=== PATIENT | male | born 1940 | race Caucasian/White ===

== ENCOUNTER 2018-03-20 12:12 | Emergency (ER) | payer MEDICARE ==
[~2018-03-20] VITALS: Ht 177.8 cm; Wt 78.0 kg
--- NOTE | 2018-03-20 12:51 | NUR ---
PT IN BR ATTEMPTING TO PROVIDE UA, ROOM SET UP FOR PT.
--- NOTE | 2018-03-20 13:07 | NUR ---
URINE COLLECTED/SENT TO LAB. VS RECHECKED/UPDATED IN COMPUTER. PT IN NAD AT THIS TIME. PT STATES URINARY PROBLEMS ONGOING FOR FOUR YEARS. STATES HE DOESN'T LIKE TAKING "PROSTATE MEDS" B/C IT MAKES HIM "PEE ALL THE TIME". PT STATES INCREASED THIRST/WATER INTAKE, STOPPED TAKING DM AND BP MEDS WELL B/C HE THOUGHT IT WAS MAKING HIS DIABETES WORSE. PT EDUCATED ON SX R/T STOPPING MEDS, POTENTIAL PROBLEMS. PT APPEARS RECEPTIVE TO TEACHING. CALL LIGHT WITHIN REACH, WARM BLANKET OFFERED.
[2018-03-20 13:21] LABS: BASOPHILS # (AUTO) 0.01 x10^3/uL (0-0.1); BASOPHILS % (AUTO) 0 % (0-1); EOSINOPHILS # (AUTO) 0.09 x10^3/uL (0-0.4); EOSINOPHILS % (AUTO) 1 % (1-7); LYMPHOCYTES # (AUTO) 0.79 x10^3/uL (1-3.4); LYMPHOCYTES % (AUTO) 8 % (22-44); MD NO; MEAN CORPUSCULAR HEMOGLOBIN 32.6 pg (27.5-34.5); MEAN CORPUSCULAR HGB CONC 33.6 g/dL (33.2-36.2); MEAN PLATELET VOLUME 9.4 fL (7.4-10.4); MONOCYTES # (AUTO) 1.17 x10^3/uL (0.2-0.8); MONOCYTES % (AUTO) 12 % (2-9); NEUTROPHILS # (AUTO) 7.43 x10^3/uL (1.8-6.8); NEUTROPHILS % (AUTO) 78 % (42-75); PLATELET COUNT 250 x10^3/uL (130-400); RED BLOOD COUNT 4.43 x10^6/uL (4.38-5.82); RED CELL DISTRIBUTION WIDTH 13.8 % (9.4-14.8)
[2018-03-20 13:27] LABS: MICROSCOPIC INDICATED
[2018-03-20 13:34] LABS: ALANINE AMINOTRANSFERASE 17 U/L (12-78); ALBUMIN 3.3 g/dL (3.4-5.0); ANION GAP 18 mmol/L (5-15); CALCIUM 9.3 mg/dL (8.5-10.1); CHLORIDE 102 mmol/L (98-107); CREATININE 1.37 mg/dL (0.7-1.3)
[2018-03-20 13:36] LABS: ALKALINE PHOSPHATASE 119 U/L (45-117); BILIRUBIN,TOTAL 0.9 mg/dL (0.2-1.0)
[2018-03-20] MEDS ORDERED: ENALAPRILAT 1.25 MG/ML, 2ML IV ONE (14:00)
--- NOTE | 2018-03-20 14:12 | NUR ---
VS RECHECKED/UPDATED IN COMPUTER-ERP AWARE. PT UPDATED ON POC. PT REQUESTING WATER, AWARE OF NEED TO WAIT UNTIL CT HEAD READ BACK. PCXR COMPLETED.
[2018-03-20 14:16] LABS: CULTURE INDICATED? YES
--- NOTE | 2018-03-20 14:28 | NUR ---
WATER PROVIDED PER ERP. AWAITING CXR READ.
--- NOTE | 2018-03-20 15:04 | NUR ---
ALL RESULTS BACK, PT FOR RECHECK.
[2018-03-20 15:33] VITALS: BP 144/89
== END 2018-03-20 15:38 | disposition home or self-care (01) ==
LOC: ED 15:30
DX: R42 Dizziness and giddiness (principal); N39.45 Continuous leakage; E11.9 Type 2 diabetes mellitus without complications; I10 Essential (primary) hypertension; Z72.9 Problem related to lifestyle, unspecified; Z87.891 Personal history of nicotine dependence
CPT/HCPCS: 36415; 70450; 71045; 80053; 81001; 82962; 85025; 87077; 87086; 87186; 93005; 99284

== ENCOUNTER 2018-03-23 07:15 | Inpatient (IN) | payer MEDICARE ==
[~2018-03-23] VITALS: Ht 180.3 cm; Wt 84.5 kg
[2018-03-23] MEDS ORDERED: PANTOPRAZOLE 40 MG IV ONE (08:27)
[2018-03-23] MEDS ORDERED: PANTOPRAZOLE 40 MG IV IVPush ONE (08:30)
[2018-03-23] MEDS ORDERED: PLEASE ENTER HEIGHT AND WEIGHT MC SCH (08:30)
[2018-03-23] MEDS ORDERED: SODIUM CHLORIDE 0.9% 1,000ML IVBOLUS ONE ×3 (08:30→16:00)
[2018-03-23 08:53] LABS: MEAN CORPUSCULAR HEMOGLOBIN 32.5 pg (27.5-34.5); MEAN CORPUSCULAR HGB CONC 33.6 g/dL (33.2-36.2); MEAN CORPUSCULAR VOLUME 96.8 fL (81-97); MEAN PLATELET VOLUME 9.6 fL (7.4-10.4); PLATELET COUNT 302 x10^3/uL (130-400); RED BLOOD COUNT 4.09 x10^6/uL (4.38-5.82); RED CELL DISTRIBUTION WIDTH 13.8 % (9.4-14.8)
[2018-03-23 08:55] LABS: ALANINE AMINOTRANSFERASE 18 U/L (12-78); ALBUMIN 2.4 g/dL (3.4-5.0); ANION GAP 19 mmol/L (5-15); CALCIUM 9.6 mg/dL (8.5-10.1); CHLORIDE 99 mmol/L (98-107); CREATININE 3.97 mg/dL (0.7-1.3)
[2018-03-23 09:05] LABS: ALKALINE PHOSPHATASE 146 U/L (45-117); TOTAL PROTEIN 6.4 g/dL (6.4-8.2)
[2018-03-23 09:07] LABS: MD YES
[2018-03-23 09:09] LABS: METAMYELOCYTES# (MANUAL) 0.15 x10^3/uL (0-0); METAMYELOCYTES% (MANUAL) 1 % (0-1); NRBC % (MANUAL) 1 % (0-1)
[2018-03-23 09:11] LABS: BAND#(MANUAL) 1.66 x10^3/uL; BANDS%(MANUAL) 11 % (0-7); LYMPH#(MANUAL) 1.06 x10^3/uL (1-3.4); LYMPHS% (MANUAL) 7 % (22-44); MONOS#(MANUAL) 0.91 x10^3/uL (0.3-2.7); MONOS% (MANUAL) 6 % (2-9); SEG#(MANUAL) 11.33 x10^3/uL (1.8-6.8); SEGS% (MANUAL) 75 % (42-75)
[2018-03-23 09:13] LABS: <PLATELET ESTIMATE> ADEQUATE; <PLT MORPHOLOGY> NORMAL PLT MORPH; <RBC MORPHOLOGY> NORMAL; PMNS WITH VACUOLES 1+; TOXIC GRAN 1+
[2018-03-23] MEDS ORDERED: REGULAR INSULIN 62.5 UNITS in SODIUM CHLORIDE 0.9% 249.375 ML IV PRN (09:16)
[2018-03-23 09:24] LABS: ACETONE, SERUM Large (80mg/dL) mg/dL (Negative)
[2018-03-23] MEDS ORDERED: D5%-0.45NACL+KCL 20MEQ 1,000 ML IV SCH (09:46)
[2018-03-23] MEDS: SODIUM CHLORIDE 0.9% 1,000 ML IV SCH ×3 (09:46→21:27)
[2018-03-23] MEDS ORDERED: ONDANSETRON ODT 4 MG PO PRN (10:00)
[2018-03-23] MEDS ORDERED: POLYETHYLENE GLYCOL 17 GM PACKET PO PRN (10:00)
[2018-03-23] MEDS ORDERED: ONDANSETRON 2MG/ML, 2ML IVPush PRN (10:00)
[2018-03-23] MEDS ORDERED: CEFTRIAXONE PMX 1GM/50ML 50 ML IV SCH (10:00)
[2018-03-23] MEDS ORDERED: BISACODYL 10 MG SUPP PR PRN ×2 (10:00→21:00)
[2018-03-23] MEDS ORDERED: OXYcodone IR 5MG TABLET PO PRN (10:00)
[2018-03-23] MEDS ORDERED: REGULAR INSULIN 62.5 UNITS in SODIUM CHLORIDE 0.9% 249.375 ML IV SCH (10:00)
[2018-03-23] MEDS ORDERED: morphine SULFATE 10 MG/ML, 1ML IVPush PRN (10:00)
[2018-03-23] MEDS ORDERED: CEFTRIAXONE PMX 1GM/50ML 50 ML ONE (10:28)
[2018-03-23 10:32] LABS: HEMOGLOBIN A1C 11.1 % (4.2-6.3)
[2018-03-23] MEDS ORDERED: ROCURONIUM 10MG/ML,5ML ONE (11:00)
[2018-03-23] MEDS ORDERED: MIDAZOLAM 1 MG/ML, 5ML ONE (11:00)
[2018-03-23 11:07] LABS: CULTURE INDICATED? YES; MICROSCOPIC INDICATED
[2018-03-23] MEDS ORDERED: LISI-167 PO (11:13)
[2018-03-23] MEDS ORDERED: AMLO-150 PO (11:13)
[2018-03-23] MEDS ORDERED: FINA5TAB4 PO (11:13)
[2018-03-23] MEDS ORDERED: DOXA4TAB3 PO (11:13)
[2018-03-23 12:00] LABS: ANION GAP 20 mmol/L (5-15); CALCIUM 8.8 mg/dL (8.5-10.1); CHLORIDE 105 mmol/L (98-107); CREATININE 3.74 mg/dL (0.7-1.3)
[2018-03-23] MEDS ORDERED: LISI-424 PO (13:03)
[2018-03-23 17:31] LABS: TROPONIN I 0.586 ng/mL (0.000-0.045)
[2018-03-23 17:35] LABS: ANION GAP 17 mmol/L (5-15); CALCIUM 8.4 mg/dL (8.5-10.1); CHLORIDE 108 mmol/L (98-107); CREATININE 4.11 mg/dL (0.7-1.3)
[2018-03-23] MEDS ORDERED: PROPOFOL 100 ML IV ONE (19:22)
[2018-03-23] MEDS ORDERED: NOREPINEPHRINE 1 MG/ML, 4ML ONE (19:46)
[2018-03-23] MEDS ORDERED: SODIUM BICARBONATE 1 MEQ/ML, 50ML VIAL ONE (19:50)
[2018-03-23] MEDS ORDERED: MIDAZOLAM HCL 25 MG in SODIUM CHLORIDE 0.9% 245 ML IV PRN (20:00)
[2018-03-23] MEDS ORDERED: VASOPRESSIN 100 UNIT in SODIUM CHLORIDE 0.9% 495 ML IV PRN (20:31)
[2018-03-23 20:42] LABS: ANION GAP 14 mmol/L (5-15); CALCIUM 8.3 mg/dL (8.5-10.1); CHLORIDE 112 mmol/L (98-107); CREATININE 4.12 mg/dL (0.7-1.3)
[2018-03-23] MEDS ORDERED: SENNOSIDES 8.8 MG/5 ML ORAL SOL NG PRN (21:00)
[2018-03-23] MEDS ORDERED: LIDOCAINE-MPF 1%, 2ML ENDO PRN (21:00)
[2018-03-23] MEDS ORDERED: PHARMACY MAY ADJ FOR RENAL FX MC SCH (21:00)
[2018-03-23] MEDS ORDERED: SENNA/DOCUSATE TABLET NG PRN (21:00)
[2018-03-23] MEDS ORDERED: FENTANYL PF 100 MCG/2ML IVPush PRN (21:00)
[2018-03-23] MEDS ORDERED: LACTULOSE 20 GM/30 ML UDC NG PRN (21:00)
[2018-03-23] MEDS ORDERED: SODIUM BICARBONATE 8.4% 100 MEQ in SODIUM CHLORIDE 0.45% 1,000 ML IV SCH (21:00)
[2018-03-23] MEDS ORDERED: SODIUM BICARBONATE 8.4% 150 MEQ in DEXTROSE 5% 1,000 ML IV SCH (21:00)
[2018-03-23] MEDS: LINEZOLID PMX 600MG/300ML 300 ML IV SCH (21:08)
[2018-03-23] MEDS: MEROPENEM 500 MG in SODIUM CHLORIDE 0.9% 100 ML IV SCH (21:08)
[2018-03-23] MEDS: PANTOPRAZOLE 40 MG IV IVPush SCH (21:21)
[2018-03-23 21:32] LABS: MEAN CORPUSCULAR HEMOGLOBIN 32.8 pg (27.5-34.5); MEAN CORPUSCULAR VOLUME 96.5 fL (81-97); MEAN PLATELET VOLUME 9.5 fL (7.4-10.4); PLATELET COUNT 342 x10^3/uL (130-400); RED CELL DISTRIBUTION WIDTH 13.6 % (9.4-14.8)
[2018-03-23] MEDS: ALBUTEROL/IPRATROPIUM 2.5MG/0.5MG, 3 ML INLINE SCH (22:26)
[2018-03-24] MEDS: REGULAR INSULIN 125 UNITS in SODIUM CHLORIDE 0.9% 248.75 ML IV SCH ×2 (00:28→17:36)
[2018-03-24] MEDS: NOREPINEPHRINE 4 MG in SODIUM CHLORIDE 0.9% 246 ML IV PRN ×2 (00:28→04:12)
[2018-03-24 00:42] LABS: ANION GAP 14 mmol/L (5-15); CALCIUM 7.9 mg/dL (8.5-10.1); CHLORIDE 113 mmol/L (98-107)
[2018-03-24 00:43] LABS: CREATININE 4.15 mg/dL (0.7-1.3)
[2018-03-24] MEDS: ALBUTEROL/IPRATROPIUM 2.5MG/0.5MG, 3 ML INLINE SCH ×6 (02:23→22:15)
[2018-03-24 02:31] LABS: MEAN CORPUSCULAR HEMOGLOBIN 32.9 pg (27.5-34.5); MEAN CORPUSCULAR HGB CONC 34.4 g/dL (33.2-36.2); MEAN CORPUSCULAR VOLUME 95.6 fL (81-97); MEAN PLATELET VOLUME 9.1 fL (7.4-10.4); PLATELET COUNT 318 x10^3/uL (130-400); RED BLOOD COUNT 3.38 x10^6/uL (4.38-5.82); RED CELL DISTRIBUTION WIDTH 13.8 % (9.4-14.8)
[2018-03-24] MEDS: MIDAZOLAM HCL 25 MG in SODIUM CHLORIDE 0.9% 245 ML IV PRN ×2 (04:12→14:22)
[2018-03-24 04:14] VITALS: BP 103/58
[2018-03-24 04:55] LABS: MEAN CORPUSCULAR HEMOGLOBIN 32.8 pg (27.5-34.5); MEAN CORPUSCULAR HGB CONC 34.3 g/dL (33.2-36.2); MEAN CORPUSCULAR VOLUME 95.6 fL (81-97); MEAN PLATELET VOLUME 9.4 fL (7.4-10.4); PLATELET COUNT 335 x10^3/uL (130-400); RED CELL DISTRIBUTION WIDTH 13.8 % (9.4-14.8)
[2018-03-24 05:05] LABS: ALBUMIN 1.9 g/dL (3.4-5.0); CHLORIDE 116 mmol/L (98-107)
[2018-03-24 05:15] LABS: ALANINE AMINOTRANSFERASE 14 U/L (12-78); ALKALINE PHOSPHATASE 127 U/L (45-117); ANION GAP 16 mmol/L (5-15); BILIRUBIN,TOTAL 0.7 mg/dL (0.2-1.0); CREATININE 4.32 mg/dL (0.7-1.3); TOTAL PROTEIN 5.2 g/dL (6.4-8.2)
[2018-03-24 05:36] LABS: MD YES
[2018-03-24 05:38] LABS: BAND#(MANUAL) 3.86 x10^3/uL; BANDS%(MANUAL) 29 % (0-7); NRBC % (MANUAL) 2 % (0-1)
[2018-03-24 05:39] LABS: LYMPH#(MANUAL) 0.67 x10^3/uL (1-3.4); LYMPHS% (MANUAL) 5 % (22-44); MONOS#(MANUAL) 0.67 x10^3/uL (0.3-2.7); MONOS% (MANUAL) 5 % (2-9); SEG#(MANUAL) 8.11 x10^3/uL (1.8-6.8); SEGS% (MANUAL) 61 % (42-75)
[2018-03-24 05:40] LABS: <RBC MORPHOLOGY> NORMAL; TOXIC GRAN 1+
[2018-03-24 05:41] LABS: <PLATELET ESTIMATE> ADEQUATE; <PLT MORPHOLOGY> NORMAL PLT MORPH
[2018-03-24 05:42] LABS: PMNS WITH VACUOLES 2+
[2018-03-24] MEDS ORDERED: [UNRECOGNIZED DRUG - OTHER] IV SCH (06:30)
[2018-03-24] MEDS ORDERED: SODIUM BICARB IV SCH (06:30)
[2018-03-24] MEDS ORDERED: POTASSIUM CHLORIDE IV SCH (06:30)
[2018-03-24] MEDS ORDERED: POTASSIUM PHOSPHATE 44 MEQ in SODIUM CHLORIDE 0.9% 500 ML IV ONE (06:30)
[2018-03-24] MEDS: NOREPINEPHRINE 8 MG in SODIUM CHLORIDE 0.9% 242 ML IV PRN ×2 (07:06→19:42)
[2018-03-24] MEDS: SENNA/DOCUSATE TABLET PO SCH (09:00)
[2018-03-24 09:31] LABS: HEMOGRAM NOTE RECHECKED; MEAN CORPUSCULAR HEMOGLOBIN 32.4 pg (27.5-34.5); MEAN CORPUSCULAR HGB CONC 33.6 g/dL (33.2-36.2); MEAN CORPUSCULAR VOLUME 96.5 fL (81-97); MEAN PLATELET VOLUME 9.1 fL (7.4-10.4); PLATELET COUNT 253 x10^3/uL (130-400); RED BLOOD COUNT 3.18 x10^6/uL (4.38-5.82); RED CELL DISTRIBUTION WIDTH 13.9 % (9.4-14.8)
[2018-03-24] MEDS: MEROPENEM 500 MG in SODIUM CHLORIDE 0.9% 100 ML IV SCH ×2 (09:34→21:33)
[2018-03-24] MEDS: LINEZOLID PMX 600MG/300ML 300 ML IV SCH ×2 (09:34→19:41)
[2018-03-24] MEDS: PANTOPRAZOLE 40 MG IV IVPush SCH ×2 (09:34→19:41)
[2018-03-24] MEDS ORDERED: D5%-0.45NACL+KCL 20MEQ 1,000 ML IV SCH (09:46)
[2018-03-24 10:33] LABS: GASTRIC OCCULT BLD POSITIVE (NEGATIVE)
[2018-03-24 10:50] LABS: ANION GAP 15 mmol/L (5-15); CALCIUM 7.8 mg/dL (8.5-10.1); CHLORIDE 115 mmol/L (98-107); CREATININE 4.23 mg/dL (0.7-1.3)
[2018-03-24] MEDS: SODIUM BICARB IV SCH ×2 (12:00→17:39)
[2018-03-24] MEDS: POTASSIUM CHLORIDE IV SCH ×2 (12:00→17:39)
[2018-03-24] MEDS: [UNRECOGNIZED DRUG - OTHER] IV SCH ×2 (12:00→17:39)
[2018-03-24 14:46] LABS: ANION GAP 14 mmol/L (5-15); CALCIUM 7.5 mg/dL (8.5-10.1); CHLORIDE 114 mmol/L (98-107); CREATININE 4.51 mg/dL (0.7-1.3)
[2018-03-24 19:28] LABS: ANION GAP 11 mmol/L (5-15); CALCIUM 7.4 mg/dL (8.5-10.1); CHLORIDE 114 mmol/L (98-107); CREATININE 4.55 mg/dL (0.7-1.3)
[2018-03-24 23:46] LABS: ANION GAP 14 mmol/L (5-15); CALCIUM 7.6 mg/dL (8.5-10.1); CHLORIDE 114 mmol/L (98-107); CREATININE 4.57 mg/dL (0.7-1.3)
[2018-03-25] MEDS: SODIUM BICARB IV SCH ×2 (01:26→11:47)
[2018-03-25] MEDS: POTASSIUM CHLORIDE IV SCH ×2 (01:26→11:47)
[2018-03-25] MEDS: [UNRECOGNIZED DRUG - OTHER] IV SCH ×2 (01:26→11:47)
[2018-03-25] MEDS: ALBUTEROL/IPRATROPIUM 2.5MG/0.5MG, 3 ML INLINE SCH ×6 (02:53→22:59)
[2018-03-25 04:47] VITALS: BP 119/48
[2018-03-25 04:50] LABS: MEAN CORPUSCULAR HEMOGLOBIN 32.8 pg (27.5-34.5); MEAN CORPUSCULAR HGB CONC 34.4 g/dL (33.2-36.2); MEAN CORPUSCULAR VOLUME 95.4 fL (81-97); MEAN PLATELET VOLUME 9.3 fL (7.4-10.4); PLATELET COUNT 203 x10^3/uL (130-400); RED CELL DISTRIBUTION WIDTH 14.3 % (9.4-14.8)
[2018-03-25 04:57] LABS: ANION GAP 15 mmol/L (5-15); CALCIUM 7.7 mg/dL (8.5-10.1); CHLORIDE 112 mmol/L (98-107)
[2018-03-25 04:58] LABS: CREATININE 4.81 mg/dL (0.7-1.3)
[2018-03-25 05:37] LABS: MD YES
[2018-03-25 05:39] LABS: <RBC MORPHOLOGY> NORMAL; BAND#(MANUAL) 4.16 x10^3/uL; BANDS%(MANUAL) 26 % (0-7); LYMPH#(MANUAL) 0.48 x10^3/uL (1-3.4); LYMPHS% (MANUAL) 3 % (22-44); METAMYELOCYTES# (MANUAL) 0.16 x10^3/uL (0-0); METAMYELOCYTES% (MANUAL) 1 % (0-1); MONOS#(MANUAL) 0.16 x10^3/uL (0.3-2.7); MONOS% (MANUAL) 1 % (2-9); SEG#(MANUAL) 11.04 x10^3/uL (1.8-6.8); SEGS% (MANUAL) 69 % (42-75); TOXIC GRAN 1+
[2018-03-25 05:40] LABS: <PLATELET ESTIMATE> ADEQUATE; <PLT MORPHOLOGY> NORMAL PLT MORPH; PMNS WITH VACUOLES 1+
[2018-03-25] MEDS: SENNA/DOCUSATE TABLET PO SCH (09:00)
[2018-03-25] MEDS: LINEZOLID PMX 600MG/300ML 300 ML IV SCH ×2 (09:04→19:45)
[2018-03-25] MEDS: MIDAZOLAM HCL 25 MG in SODIUM CHLORIDE 0.9% 245 ML IV PRN ×2 (09:06→19:44)
[2018-03-25] MEDS: PANTOPRAZOLE 40 MG IV IVPush SCH ×2 (09:06→21:11)
[2018-03-25 09:33] LABS: ANION GAP 12 mmol/L (5-15); CALCIUM 7.7 mg/dL (8.5-10.1); CHLORIDE 111 mmol/L (98-107)
[2018-03-25 09:34] LABS: CREATININE 5.12 mg/dL (0.7-1.3)
[2018-03-25] MEDS: MEROPENEM 500 MG in SODIUM CHLORIDE 0.9% 100 ML IV SCH ×2 (11:46→21:11)
[2018-03-25] MEDS: D5%-0.45% NACL 1,000 ML IV SCH (15:00)
[2018-03-25] MEDS: REGULAR INSULIN 125 UNITS in SODIUM CHLORIDE 0.9% 248.75 ML IV SCH (15:52)
[2018-03-25] MEDS: NOREPINEPHRINE 8 MG in SODIUM CHLORIDE 0.9% 242 ML IV PRN (19:43)
[2018-03-26] MEDS: ALBUTEROL/IPRATROPIUM 2.5MG/0.5MG, 3 ML INLINE SCH ×6 (03:13→23:00)
[2018-03-26] MEDS: D5%-0.45% NACL 1,000 ML IV SCH (03:45)
[2018-03-26 04:33] VITALS: BP 100/56
[2018-03-26 04:34] LABS: MEAN CORPUSCULAR HEMOGLOBIN 33.1 pg (27.5-34.5); MEAN CORPUSCULAR HGB CONC 34.4 g/dL (33.2-36.2); MEAN CORPUSCULAR VOLUME 96.1 fL (81-97); MEAN PLATELET VOLUME 8.8 fL (7.4-10.4); PLATELET COUNT 190 x10^3/uL (130-400); RED BLOOD COUNT 2.86 x10^6/uL (4.38-5.82); RED CELL DISTRIBUTION WIDTH 14.3 % (9.4-14.8)
[2018-03-26 04:46] LABS: CHLORIDE 106 mmol/L (98-107)
[2018-03-26 04:52] LABS: ALANINE AMINOTRANSFERASE 15 U/L (12-78); ALBUMIN 1.2 g/dL (3.4-5.0); ALKALINE PHOSPHATASE 108 U/L (45-117); ANION GAP 13 mmol/L (5-15); BILIRUBIN,TOTAL 0.6 mg/dL (0.2-1.0); CALCIUM 7.1 mg/dL (8.5-10.1); CREATININE 4.17 mg/dL (0.7-1.3); TOTAL PROTEIN 4.4 g/dL (6.4-8.2); TRIGLYCERIDES 103 mg/dL (50-200)
[2018-03-26 04:53] LABS: MD YES
[2018-03-26 04:55] LABS: BAND#(MANUAL) 0.76 x10^3/uL; BANDS%(MANUAL) 5 % (0-7); LYMPH#(MANUAL) 1.51 x10^3/uL (1-3.4); LYMPHS% (MANUAL) 10 % (22-44); METAMYELOCYTES# (MANUAL) 0.15 x10^3/uL (0-0); METAMYELOCYTES% (MANUAL) 1 % (0-1); MONOS#(MANUAL) 1.06 x10^3/uL (0.3-2.7); MONOS% (MANUAL) 7 % (2-9); SEG#(MANUAL) 11.63 x10^3/uL (1.8-6.8); SEGS% (MANUAL) 77 % (42-75)
[2018-03-26 04:56] LABS: <RBC MORPHOLOGY> NORMAL
[2018-03-26 04:57] LABS: <PLATELET ESTIMATE> ADEQUATE; PMNS WITH VACUOLES 1+
[2018-03-26 04:58] LABS: <PLT MORPHOLOGY> NORMAL PLT MORPH
[2018-03-26] MEDS: MIDAZOLAM HCL 25 MG in SODIUM CHLORIDE 0.9% 245 ML IV PRN (05:37)
[2018-03-26] MEDS ORDERED: MAGNESIUM SULFATE PMX 2GM/50ML 50 ML IV ONE (07:00)
[2018-03-26] MEDS: PANTOPRAZOLE 40 MG IV IVPush SCH ×2 (08:32→20:47)
[2018-03-26] MEDS: SENNA/DOCUSATE TABLET PO SCH (08:32)
[2018-03-26] MEDS: MEROPENEM 500 MG in SODIUM CHLORIDE 0.9% 100 ML IV SCH ×2 (08:39→23:05)
[2018-03-26] MEDS ORDERED: VASOPRESSIN 100 UNIT in SODIUM CHLORIDE 0.9% 495 ML IV PRN (09:30)
[2018-03-26] MEDS: LINEZOLID PMX 600MG/300ML 300 ML IV SCH ×2 (09:38→20:46)
[2018-03-26 10:56] LABS: INTERNATIONAL NORMALIZED RATIO 1.12 (0.93-1.1); PROTHROMBIN TIME 11.8 Seconds (9.6-11.5)
[2018-03-26] MEDS: FENTANYL PF 2,500 MCG in SODIUM CHLORIDE 0.9% 200 ML IV PRN (10:58)
[2018-03-26] MEDS: INSULIN LISPRO 100 UNITS/ML, PEN SQ-INSULIN SCH ×3 (12:20→20:46)
[2018-03-26] MEDS: INSULIN GLARGINE 100 UNITS/ML, PEN SQ-INSULIN SCH (12:21)
[2018-03-26] MEDS: D5%-0.9% NACL 1,000 ML IV SCH (12:22)
[2018-03-26] MEDS: NOREPINEPHRINE 4 MG in SODIUM CHLORIDE 0.9% 246 ML IV PRN (23:36)
[2018-03-27] MEDS: INSULIN GLARGINE 100 UNITS/ML, PEN SQ-INSULIN SCH ×2 (00:19→12:29)
[2018-03-27] MEDS: INSULIN LISPRO 100 UNITS/ML, PEN SQ-INSULIN SCH ×6 (00:19→20:47)
[2018-03-27] MEDS: ALBUTEROL/IPRATROPIUM 2.5MG/0.5MG, 3 ML INLINE SCH ×6 (02:32→22:55)
[2018-03-27 06:06] LABS: MEAN CORPUSCULAR HEMOGLOBIN 32.7 pg (27.5-34.5); MEAN CORPUSCULAR HGB CONC 34.1 g/dL (33.2-36.2); MEAN CORPUSCULAR VOLUME 95.7 fL (81-97); MEAN PLATELET VOLUME 9.3 fL (7.4-10.4); PLATELET COUNT 126 x10^3/uL (130-400); RED BLOOD COUNT 2.54 x10^6/uL (4.38-5.82); RED CELL DISTRIBUTION WIDTH 14.4 % (9.4-14.8)
[2018-03-27 06:14] LABS: ANION GAP 12 mmol/L (5-15); CALCIUM 7.2 mg/dL (8.5-10.1); CHLORIDE 100 mmol/L (98-107); CREATININE 3.74 mg/dL (0.7-1.3)
[2018-03-27 06:20] LABS: MD YES
[2018-03-27 06:22] LABS: BAND#(MANUAL) 0.22 x10^3/uL; BANDS%(MANUAL) 2 % (0-7); LYMPH#(MANUAL) 1.21 x10^3/uL (1-3.4); LYMPHS% (MANUAL) 11 % (22-44); METAMYELOCYTES# (MANUAL) 0.11 x10^3/uL (0-0); METAMYELOCYTES% (MANUAL) 1 % (0-1); MONOS% (MANUAL) 10 % (2-9); SEG#(MANUAL) 8.36 x10^3/uL (1.8-6.8); SEGS% (MANUAL) 76 % (42-75)
[2018-03-27 06:23] LABS: <PLATELET ESTIMATE> ADEQUATE; <PLT MORPHOLOGY> NORMAL PLT MORPH; <RBC MORPHOLOGY> NORMAL
[2018-03-27] MEDS: LINEZOLID PMX 600MG/300ML 300 ML IV SCH (08:31)
[2018-03-27] MEDS: SENNA/DOCUSATE TABLET PO SCH (09:00)
[2018-03-27] MEDS: PANTOPRAZOLE 40 MG IV IVPush SCH ×2 (09:22→20:47)
[2018-03-27] MEDS ORDERED: THIAMINE 200 MG in SODIUM CHLORIDE 0.9% 50 ML IV SCH (09:30)
[2018-03-27] MEDS: D5%-0.9% NACL 1,000 ML IV SCH (09:34)
[2018-03-27] MEDS: MEROPENEM 500 MG in SODIUM CHLORIDE 0.9% 100 ML IV SCH (10:26)
[2018-03-28] MEDS: INSULIN LISPRO 100 UNITS/ML, PEN SQ-INSULIN SCH ×6 (00:29→20:48)
[2018-03-28] MEDS: MEROPENEM 500 MG in SODIUM CHLORIDE 0.9% 100 ML IV SCH (00:33)
[2018-03-28] MEDS: INSULIN GLARGINE 100 UNITS/ML, PEN SQ-INSULIN SCH ×2 (00:34→12:54)
[2018-03-28] MEDS: ALBUTEROL/IPRATROPIUM 2.5MG/0.5MG, 3 ML INLINE SCH ×6 (03:00→23:00)
[2018-03-28 04:32] LABS: MEAN CORPUSCULAR HEMOGLOBIN 31.6 pg (27.5-34.5); MEAN CORPUSCULAR HGB CONC 33.3 g/dL (33.2-36.2); MEAN CORPUSCULAR VOLUME 94.9 fL (81-97); MEAN PLATELET VOLUME 9.1 fL (7.4-10.4); PLATELET COUNT 122 x10^3/uL (130-400); RED BLOOD COUNT 2.59 x10^6/uL (4.38-5.82)
[2018-03-28] MEDS: D5%-0.9% NACL 1,000 ML IV SCH (04:38)
[2018-03-28 04:43] LABS: ANION GAP 8 mmol/L (5-15); CALCIUM 7.4 mg/dL (8.5-10.1); CHLORIDE 103 mmol/L (98-107)
[2018-03-28 04:51] LABS: MD YES
[2018-03-28 04:53] LABS: ANISOCYTOSIS 1+; BAND#(MANUAL) 0.22 x10^3/uL; BANDS%(MANUAL) 2 % (0-7); EOS#(MANUAL) 0.11 x10^3/uL (0.0-0.4); EOS% (MANUAL) 1 % (1-7); LYMPH#(MANUAL) 0.56 x10^3/uL (1-3.4); LYMPHS% (MANUAL) 5 % (22-44); METAMYELOCYTES# (MANUAL) 0.11 x10^3/uL (0-0); METAMYELOCYTES% (MANUAL) 1 % (0-1); MONOS#(MANUAL) 0.78 x10^3/uL (0.3-2.7); MONOS% (MANUAL) 7 % (2-9); MYELOCYTES# (MANUAL) 0.22 x10^3/uL (0-0); MYELOCYTES% (MANUAL) 2 % (0-0); SEGS% (MANUAL) 82 % (42-75)
[2018-03-28 04:54] LABS: <PLATELET ESTIMATE> ADEQUATE; <PLT MORPHOLOGY> NORMAL PLT MORPH
[2018-03-28] MEDS: PANTOPRAZOLE 40 MG IV IVPush SCH ×2 (09:00→23:08)
[2018-03-28] MEDS: SENNA/DOCUSATE TABLET PO SCH (09:00)
[2018-03-28] MEDS: ERGOCALCIFEROL 8,000UNIT/ML PO SCH (09:53)
[2018-03-28] MEDS: THIAMINE 200 MG in SODIUM CHLORIDE 0.9% 50 ML IV SCH (09:54)
[2018-03-28] MEDS: FENTANYL PF 2,500 MCG in SODIUM CHLORIDE 0.9% 200 ML IV PRN (10:04)
[2018-03-28] MEDS: CEFTRIAXONE PMX 2GM/50ML 50 ML IVPB SCH (12:42)
[2018-03-29] MEDS ORDERED: PROPOFOL 100 ML IV ONE (00:12)
[2018-03-29] MEDS: PROPOFOL 100 ML IV PRN ×3 (00:20→19:07)
[2018-03-29] MEDS ORDERED: hydrALAzine 20 MG/ML, 1ML IV PRN (00:30)
[2018-03-29] MEDS ORDERED: LABETALOL 5MG/ML, 20ML IVPush PRN (00:30)
[2018-03-29] MEDS: INSULIN LISPRO 100 UNITS/ML, PEN SQ-INSULIN SCH ×4 (01:00→20:18)
[2018-03-29] MEDS: INSULIN GLARGINE 100 UNITS/ML, PEN SQ-INSULIN SCH ×2 (01:08→12:56)
[2018-03-29] MEDS: ALBUTEROL/IPRATROPIUM 2.5MG/0.5MG, 3 ML INLINE SCH ×6 (02:54→23:07)
[2018-03-29 04:30] LABS: BASOPHILS # (AUTO) 0.01 x10^3/uL (0-0.1); BASOPHILS % (AUTO) 0 % (0-1); EOSINOPHILS # (AUTO) 0.35 x10^3/uL (0-0.4); EOSINOPHILS % (AUTO) 3 % (1-7); LYMPHOCYTES % (AUTO) 5 % (22-44); MD NO; MEAN CORPUSCULAR HEMOGLOBIN 33.1 pg (27.5-34.5); MEAN CORPUSCULAR HGB CONC 34.9 g/dL (33.2-36.2); MEAN CORPUSCULAR VOLUME 94.9 fL (81-97); MEAN PLATELET VOLUME 10.1 fL (7.4-10.4); MONOCYTES # (AUTO) 1.36 x10^3/uL (0.2-0.8); MONOCYTES % (AUTO) 10 % (2-9); NEUTROPHILS # (AUTO) 10.81 x10^3/uL (1.8-6.8); NEUTROPHILS % (AUTO) 82 % (42-75); PLATELET COUNT 110 x10^3/uL (130-400); RED BLOOD COUNT 2.55 x10^6/uL (4.38-5.82); RED CELL DISTRIBUTION WIDTH 14.1 % (9.4-14.8)
[2018-03-29 04:37] LABS: ANION GAP 9 mmol/L (5-15); CALCIUM 7.5 mg/dL (8.5-10.1); CHLORIDE 102 mmol/L (98-107); CREATININE 3.01 mg/dL (0.7-1.3); TRIGLYCERIDES 123 mg/dL (50-200)
[2018-03-29] MEDS: ACETAMINOPHEN 325 MG TABLET PO PRN (04:57)
[2018-03-29] MEDS: PANTOPRAZOLE 40 MG IV IVPush SCH ×2 (09:00→20:54)
[2018-03-29] MEDS: SENNA/DOCUSATE TABLET PO SCH (09:12)
[2018-03-29] MEDS: CEFTRIAXONE PMX 2GM/50ML 50 ML IVPB SCH (09:14)
[2018-03-29] MEDS: THIAMINE 200 MG in SODIUM CHLORIDE 0.9% 50 ML IV SCH (09:44)
[2018-03-29] MEDS ORDERED: SODIUM CHLORIDE 0.9%, 500ML IVBOLUS ONE (17:05)
[2018-03-30] MEDS: INSULIN GLARGINE 100 UNITS/ML, PEN SQ-INSULIN SCH ×2 (00:51→14:44)
[2018-03-30] MEDS: NOREPINEPHRINE 4 MG in SODIUM CHLORIDE 0.9% 246 ML IV PRN (01:38)
[2018-03-30] MEDS: INSULIN LISPRO 100 UNITS/ML, PEN SQ-INSULIN SCH ×4 (02:56→20:33)
[2018-03-30] MEDS: ALBUTEROL/IPRATROPIUM 2.5MG/0.5MG, 3 ML INLINE SCH ×6 (03:01→23:06)
[2018-03-30] MEDS: ACETAMINOPHEN 325 MG TABLET PO PRN ×2 (04:22→14:43)
[2018-03-30 04:41] LABS: MEAN CORPUSCULAR HEMOGLOBIN 33.3 pg (27.5-34.5); MEAN CORPUSCULAR HGB CONC 34.6 g/dL (33.2-36.2); MEAN CORPUSCULAR VOLUME 96.2 fL (81-97); MEAN PLATELET VOLUME 10.4 fL (7.4-10.4); PLATELET COUNT 166 x10^3/uL (130-400); RED BLOOD COUNT 2.29 x10^6/uL (4.38-5.82); RED CELL DISTRIBUTION WIDTH 14.3 % (9.4-14.8)
[2018-03-30 05:16] LABS: BASOPHILS # (AUTO) 0.13 x10^3/uL (0-0.1); BASOPHILS % (AUTO) 1 % (0-1); EOSINOPHILS # (AUTO) 0.09 x10^3/uL (0-0.4); EOSINOPHILS % (AUTO) 1 % (1-7); LYMPHOCYTES # (AUTO) 0.76 x10^3/uL (1-3.4); LYMPHOCYTES % (AUTO) 5 % (22-44); MD SCAN; MONOCYTES # (AUTO) 1.02 x10^3/uL (0.2-0.8); MONOCYTES % (AUTO) 7 % (2-9); NEUTROPHILS % (AUTO) 86 % (42-75)
[2018-03-30 05:47] LABS: ANION GAP 8 mmol/L (5-15); CALCIUM 7.3 mg/dL (8.5-10.1); CHLORIDE 104 mmol/L (98-107); CREATININE 3.92 mg/dL (0.7-1.3)
[2018-03-30] MEDS: SENNA/DOCUSATE TABLET PO SCH (08:59)
[2018-03-30] MEDS: PANTOPRAZOLE 40 MG IV IVPush SCH ×2 (08:59→21:09)
[2018-03-30] MEDS: CEFTRIAXONE PMX 2GM/50ML 50 ML IVPB SCH (10:04)
[2018-03-30] MEDS ORDERED: THIAMINE 100 MG in SODIUM CHLORIDE 0.9% 50 ML IV SCH (10:30)
[2018-03-30] MEDS: PROPOFOL 100 ML IV PRN (22:57)
[2018-03-31] MEDS: INSULIN GLARGINE 100 UNITS/ML, PEN SQ-INSULIN SCH ×2 (01:56→14:19)
[2018-03-31] MEDS: INSULIN LISPRO 100 UNITS/ML, PEN SQ-INSULIN SCH ×4 (01:56→20:30)
[2018-03-31] MEDS: ALBUTEROL/IPRATROPIUM 2.5MG/0.5MG, 3 ML INLINE SCH ×3 (03:01→10:00)
[2018-03-31] MEDS: PROPOFOL 100 ML IV PRN (04:55)
[2018-03-31 05:07] LABS: ANION GAP 11 mmol/L (5-15); CHLORIDE 106 mmol/L (98-107)
[2018-03-31 05:08] LABS: MEAN CORPUSCULAR HEMOGLOBIN 31.9 pg (27.5-34.5); MEAN CORPUSCULAR HGB CONC 33.2 g/dL (33.2-36.2); MEAN CORPUSCULAR VOLUME 95.9 fL (81-97); MEAN PLATELET VOLUME 9.6 fL (7.4-10.4); PLATELET COUNT 223 x10^3/uL (130-400); RED BLOOD COUNT 2.17 x10^6/uL (4.38-5.82); RED CELL DISTRIBUTION WIDTH 14.4 % (9.4-14.8)
[2018-03-31 05:09] LABS: CREATININE 4.47 mg/dL (0.7-1.3)
[2018-03-31 05:40] LABS: BASOPHILS # (AUTO) 0.01 x10^3/uL (0-0.1); BASOPHILS % (AUTO) 0 % (0-1); EOSINOPHILS # (AUTO) 0.06 x10^3/uL (0-0.4); EOSINOPHILS % (AUTO) 1 % (1-7); LYMPHOCYTES # (AUTO) 0.72 x10^3/uL (1-3.4); LYMPHOCYTES % (AUTO) 6 % (22-44); MD SCAN; MONOCYTES # (AUTO) 0.83 x10^3/uL (0.2-0.8); MONOCYTES % (AUTO) 7 % (2-9); NEUTROPHILS # (AUTO) 10.06 x10^3/uL (1.8-6.8); NEUTROPHILS % (AUTO) 86 % (42-75)
[2018-03-31 07:22] VITALS: BP 121/60
[2018-03-31 07:36] VITALS: BP 113/56
[2018-03-31] MEDS: SENNA/DOCUSATE TABLET PO SCH (08:35)
[2018-03-31] MEDS: PANTOPRAZOLE 40 MG IV IVPush SCH ×2 (09:25→21:21)
[2018-03-31] MEDS: HEPARIN 5,000 UNITS/ML, 1ML SQ SCH ×2 (09:25→21:22)
[2018-03-31 10:29] VITALS: BP 118/58
[2018-03-31] MEDS: CEFTRIAXONE PMX 2GM/50ML 50 ML IVPB SCH (11:18)
[2018-04-01] MEDS: INSULIN GLARGINE 100 UNITS/ML, PEN SQ-INSULIN SCH (01:00)
[2018-04-01] MEDS: INSULIN LISPRO 100 UNITS/ML, PEN SQ-INSULIN SCH ×4 (02:30→20:48)
[2018-04-01 06:13] LABS: MEAN CORPUSCULAR HEMOGLOBIN 31.7 pg (27.5-34.5); MEAN CORPUSCULAR HGB CONC 33.4 g/dL (33.2-36.2); MEAN CORPUSCULAR VOLUME 94.9 fL (81-97); MEAN PLATELET VOLUME 9.5 fL (7.4-10.4); PLATELET COUNT 294 x10^3/uL (130-400); RED BLOOD COUNT 2.37 x10^6/uL (4.38-5.82); RED CELL DISTRIBUTION WIDTH 14.2 % (9.4-14.8)
[2018-04-01 06:14] LABS: ANION GAP 9 mmol/L (5-15); CALCIUM 8.1 mg/dL (8.5-10.1); CHLORIDE 106 mmol/L (98-107)
[2018-04-01 06:16] LABS: CREATININE 3.76 mg/dL (0.7-1.3)
[2018-04-01 06:47] LABS: MD SCAN
[2018-04-01 06:48] LABS: BASOPHILS # (AUTO) 0.03 x10^3/uL (0-0.1); BASOPHILS % (AUTO) 0 % (0-1); EOSINOPHILS # (AUTO) 0.04 x10^3/uL (0-0.4); EOSINOPHILS % (AUTO) 0 % (1-7); LYMPHOCYTES % (AUTO) 7 % (22-44); MONOCYTES # (AUTO) 0.66 x10^3/uL (0.2-0.8); MONOCYTES % (AUTO) 7 % (2-9); NEUTROPHILS # (AUTO) 8.65 x10^3/uL (1.8-6.8); NEUTROPHILS % (AUTO) 86 % (42-75)
[2018-04-01] MEDS: SENNA/DOCUSATE TABLET PO SCH (09:00)
[2018-04-01] MEDS: HEPARIN 5,000 UNITS/ML, 1ML SQ SCH ×2 (09:55→20:47)
[2018-04-01] MEDS: CEFTRIAXONE PMX 2GM/50ML 50 ML IVPB SCH (11:17)
[2018-04-01 21:55] VITALS: BP 186/74
[2018-04-02 01:54] VITALS: BP 167/70
[2018-04-02] MEDS: INSULIN LISPRO 100 UNITS/ML, PEN SQ-INSULIN SCH ×4 (02:59→20:31)
[2018-04-02 06:12] LABS: BASOPHILS # (AUTO) 0.04 x10^3/uL (0-0.1); BASOPHILS % (AUTO) 0 % (0-1); EOSINOPHILS # (AUTO) 0.02 x10^3/uL (0-0.4); EOSINOPHILS % (AUTO) 0 % (1-7); LYMPHOCYTES # (AUTO) 0.59 x10^3/uL (1-3.4); LYMPHOCYTES % (AUTO) 6 % (22-44); MD NO; MEAN CORPUSCULAR HEMOGLOBIN 33.4 pg (27.5-34.5); MEAN CORPUSCULAR HGB CONC 35.6 g/dL (33.2-36.2); MEAN CORPUSCULAR VOLUME 93.7 fL (81-97); MEAN PLATELET VOLUME 8.9 fL (7.4-10.4); MONOCYTES # (AUTO) 0.59 x10^3/uL (0.2-0.8); MONOCYTES % (AUTO) 6 % (2-9); NEUTROPHILS # (AUTO) 8.42 x10^3/uL (1.8-6.8); NEUTROPHILS % (AUTO) 87 % (42-75); PLATELET COUNT 367 x10^3/uL (130-400); RED BLOOD COUNT 2.54 x10^6/uL (4.38-5.82); RED CELL DISTRIBUTION WIDTH 14.1 % (9.4-14.8)
[2018-04-02 06:20] LABS: CHLORIDE 105 mmol/L (98-107)
[2018-04-02 06:25] LABS: ANION GAP 9 mmol/L (5-15); CALCIUM 8.2 mg/dL (8.5-10.1); CREATININE 2.81 mg/dL (0.7-1.3)
[2018-04-02 08:16] VITALS: BP 117/64
[2018-04-02] MEDS: LACTOBACILLUS CHEW TABLET PO SCH ×3 (10:04→20:31)
[2018-04-02] MEDS: CEFTRIAXONE PMX 2GM/50ML 50 ML IVPB SCH (10:04)
[2018-04-02] MEDS: CARVEDILOL 6.25 MG TABLET PO SCH ×2 (10:05→17:38)
[2018-04-02 11:30] LABS: ALBUMIN 1.5 g/dL (3.4-5.0); ANION GAP 9 mmol/L (5-15); CALCIUM 8.2 mg/dL (8.5-10.1); CHLORIDE 107 mmol/L (98-107); CREATININE 2.82 mg/dL (0.7-1.3)
[2018-04-02 12:20] VITALS: BP 154/70
[2018-04-02 19:52] VITALS: BP 148/76
[2018-04-03 02:20] VITALS: BP 156/88
[2018-04-03] MEDS: INSULIN LISPRO 100 UNITS/ML, PEN SQ-INSULIN SCH ×4 (04:11→21:02)
[2018-04-03 05:19] LABS: MEAN CORPUSCULAR HEMOGLOBIN 32.8 pg (27.5-34.5); MEAN CORPUSCULAR HGB CONC 34.4 g/dL (33.2-36.2); MEAN CORPUSCULAR VOLUME 95.4 fL (81-97); MEAN PLATELET VOLUME 8.7 fL (7.4-10.4); PLATELET COUNT 350 x10^3/uL (130-400); RED CELL DISTRIBUTION WIDTH 13.7 % (9.4-14.8)
[2018-04-03 05:28] LABS: CHLORIDE 107 mmol/L (98-107)
[2018-04-03 05:37] LABS: % IRON SATURATION 25 % (20-55); ANION GAP 10 mmol/L (5-15); CALCIUM 7.9 mg/dL (8.5-10.1); CREATININE 2.75 mg/dL (0.7-1.3); IRON LEVEL 40 mcg/dL (65-175); TOTAL IRON BINDING CAPACITY 159 mcg/dL (250-450)
[2018-04-03 05:45] LABS: BASOPHILS # (AUTO) 0.03 x10^3/uL (0-0.1); BASOPHILS % (AUTO) 0 % (0-1); EOSINOPHILS # (AUTO) 0.04 x10^3/uL (0-0.4); EOSINOPHILS % (AUTO) 0 % (1-7); LYMPHOCYTES # (AUTO) 0.52 x10^3/uL (1-3.4); LYMPHOCYTES % (AUTO) 6 % (22-44); MD SCAN; MONOCYTES # (AUTO) 0.44 x10^3/uL (0.2-0.8); MONOCYTES % (AUTO) 5 % (2-9); NEUTROPHILS # (AUTO) 7.17 x10^3/uL (1.8-6.8); NEUTROPHILS % (AUTO) 88 % (42-75)
[2018-04-03 05:50] VITALS: BP 169/80
[2018-04-03] MEDS: CARVEDILOL 6.25 MG TABLET PO SCH (05:53)
[2018-04-03] MEDS: PANTOPRAZOLE 40 MG IV IVPush SCH ×2 (08:31→19:59)
[2018-04-03] MEDS: FINASTERIDE 5 MG TABLET PO SCH (08:35)
[2018-04-03] MEDS: LACTOBACILLUS CHEW TABLET PO SCH ×3 (08:35→19:59)
[2018-04-03] MEDS: INSULIN GLARGINE 100 UNITS/ML, PEN SQ-INSULIN SCH ×2 (08:35→21:03)
[2018-04-03] MEDS: AMLODIPINE 5 MG TABLET PO SCH (08:35)
[2018-04-03 08:39] VITALS: BP 138/72
[2018-04-03] MEDS: IRON SUCROSE COMPLEX 100MG/5ML IV SCH (11:36)
[2018-04-03 12:59] VITALS: BP 157/80
[2018-04-03] MEDS: CARVEDILOL 12.5 MG TABLET PO SCH (17:47)
[2018-04-03 20:02] VITALS: BP 144/79
[2018-04-04] MEDS: INSULIN LISPRO 100 UNITS/ML, PEN SQ-INSULIN SCH ×4 (02:30→20:33)
[2018-04-04 02:37] VITALS: BP 136/72
[2018-04-04] MEDS: CARVEDILOL 12.5 MG TABLET PO SCH ×2 (05:21→17:07)
[2018-04-04 06:37] LABS: BASOPHILS # (AUTO) 0.03 x10^3/uL (0-0.1); BASOPHILS % (AUTO) 0 % (0-1); EOSINOPHILS # (AUTO) 0.05 x10^3/uL (0-0.4); EOSINOPHILS % (AUTO) 1 % (1-7); LYMPHOCYTES # (AUTO) 0.94 x10^3/uL (1-3.4); LYMPHOCYTES % (AUTO) 12 % (22-44); MD NO; MEAN CORPUSCULAR HEMOGLOBIN 32.8 pg (27.5-34.5); MEAN CORPUSCULAR HGB CONC 34.7 g/dL (33.2-36.2); MEAN CORPUSCULAR VOLUME 94.5 fL (81-97); MEAN PLATELET VOLUME 8.2 fL (7.4-10.4); MONOCYTES # (AUTO) 0.65 x10^3/uL (0.2-0.8); MONOCYTES % (AUTO) 8 % (2-9); NEUTROPHILS # (AUTO) 6.35 x10^3/uL (1.8-6.8); NEUTROPHILS % (AUTO) 79 % (42-75); PLATELET COUNT 377 x10^3/uL (130-400); RED BLOOD COUNT 2.38 x10^6/uL (4.38-5.82); RED CELL DISTRIBUTION WIDTH 13.6 % (9.4-14.8)
[2018-04-04 06:56] LABS: CHLORIDE 110 mmol/L (98-107)
[2018-04-04 07:15] VITALS: BP 130/67
[2018-04-04 07:21] LABS: ALANINE AMINOTRANSFERASE 30 U/L (12-78); ALBUMIN 1.7 g/dL (3.4-5.0); ALKALINE PHOSPHATASE 93 U/L (45-117); ANION GAP 8 mmol/L (5-15); BILIRUBIN,TOTAL 0.4 mg/dL (0.2-1.0); CALCIUM 7.8 mg/dL (8.5-10.1); CREATININE 2.37 mg/dL (0.7-1.3); TOTAL PROTEIN 5.8 g/dL (6.4-8.2)
[2018-04-04] MEDS ORDERED: LACTATED RINGERS 1,000 ML IV SCH (10:00)
[2018-04-04] MEDS ORDERED: PROPOFOL 10 MG/ML, 50ML ONE (11:33)
[2018-04-04] MEDS: ERGOCALCIFEROL 8,000UNIT/ML PO SCH (12:37)
[2018-04-04] MEDS: PANTOPRAZOLE 40 MG IV IVPush SCH ×2 (12:37→20:33)
[2018-04-04] MEDS: IRON SUCROSE COMPLEX 100MG/5ML IV SCH (12:37)
[2018-04-04] MEDS: INSULIN GLARGINE 100 UNITS/ML, PEN SQ-INSULIN SCH ×2 (12:38→20:34)
[2018-04-04] MEDS: AMLODIPINE 5 MG TABLET PO SCH (12:38)
[2018-04-04] MEDS: FINASTERIDE 5 MG TABLET PO SCH (12:38)
[2018-04-04] MEDS: LACTOBACILLUS CHEW TABLET PO SCH ×3 (12:38→20:33)
[2018-04-04 13:49] VITALS: BP 133/68
[2018-04-04 19:01] VITALS: BP 137/70
[2018-04-05] VITALS (13 sets, daily range): BP systolic 113–146; BP diastolic 60–81
[2018-04-05] MEDS: INSULIN LISPRO 100 UNITS/ML, PEN SQ-INSULIN SCH ×5 (02:40→20:29)
[2018-04-05 05:04] LABS: MEAN CORPUSCULAR HEMOGLOBIN 32.5 pg (27.5-34.5); MEAN CORPUSCULAR HGB CONC 34.3 g/dL (33.2-36.2); MEAN CORPUSCULAR VOLUME 94.8 fL (81-97); MEAN PLATELET VOLUME 8.3 fL (7.4-10.4); PLATELET COUNT 315 x10^3/uL (130-400); RED BLOOD COUNT 2.26 x10^6/uL (4.38-5.82); RED CELL DISTRIBUTION WIDTH 13.2 % (9.4-14.8)
[2018-04-05 05:08] LABS: ALBUMIN 1.6 g/dL (3.4-5.0); ANION GAP 5 mmol/L (5-15); CALCIUM 7.6 mg/dL (8.5-10.1); CHLORIDE 109 mmol/L (98-107)
[2018-04-05 05:13] LABS: ALANINE AMINOTRANSFERASE 30 U/L (12-78); ALKALINE PHOSPHATASE 83 U/L (45-117); BILIRUBIN,TOTAL 0.6 mg/dL (0.2-1.0); CREATININE 2.12 mg/dL (0.7-1.3); TOTAL PROTEIN 5.6 g/dL (6.4-8.2)
[2018-04-05 05:29] LABS: BASOPHILS # (AUTO) 0.05 x10^3/uL (0-0.1); BASOPHILS % (AUTO) 1 % (0-1); EOSINOPHILS # (AUTO) 0.03 x10^3/uL (0-0.4); EOSINOPHILS % (AUTO) 0 % (1-7); LYMPHOCYTES # (AUTO) 0.83 x10^3/uL (1-3.4); LYMPHOCYTES % (AUTO) 11 % (22-44); MD SCAN; MONOCYTES % (AUTO) 6 % (2-9); NEUTROPHILS # (AUTO) 6.49 x10^3/uL (1.8-6.8); NEUTROPHILS % (AUTO) 82 % (42-75)
[2018-04-05] MEDS: CARVEDILOL 12.5 MG TABLET PO SCH ×2 (05:50→17:23)
[2018-04-05] MEDS ORDERED: MAGNESIUM SULFATE PMX 2GM/50ML 50 ML IV ONE (10:00)
[2018-04-05] MEDS: LACTOBACILLUS CHEW TABLET PO SCH ×3 (10:08→20:28)
[2018-04-05] MEDS: IRON SUCROSE COMPLEX 100MG/5ML IV SCH (10:08)
[2018-04-05] MEDS: AMLODIPINE 5 MG TABLET PO SCH (10:08)
[2018-04-05] MEDS: OMEPRAZOLE 20 MG CAPSULE.DR PO SCH ×2 (10:08→20:28)
[2018-04-05] MEDS: INSULIN GLARGINE 100 UNITS/ML, PEN SQ-INSULIN SCH ×2 (10:08→20:30)
[2018-04-05] MEDS: FINASTERIDE 5 MG TABLET PO SCH (10:08)
[2018-04-06 00:20] VITALS: BP 157/81
[2018-04-06] MEDS: OMEPRAZOLE 20 MG CAPSULE.DR PO SCH ×2 (05:26→20:01)
[2018-04-06] MEDS: CARVEDILOL 12.5 MG TABLET PO SCH ×2 (05:26→17:38)
[2018-04-06 05:52] LABS: BASOPHILS # (AUTO) 0.03 x10^3/uL (0-0.1); BASOPHILS % (AUTO) 1 % (0-1); EOSINOPHILS # (AUTO) 0.05 x10^3/uL (0-0.4); EOSINOPHILS % (AUTO) 1 % (1-7); LYMPHOCYTES # (AUTO) 0.98 x10^3/uL (1-3.4); LYMPHOCYTES % (AUTO) 14 % (22-44); MD NO; MEAN CORPUSCULAR HEMOGLOBIN 32.6 pg (27.5-34.5); MEAN CORPUSCULAR HGB CONC 34.4 g/dL (33.2-36.2); MEAN CORPUSCULAR VOLUME 94.8 fL (81-97); MEAN PLATELET VOLUME 8.3 fL (7.4-10.4); MONOCYTES # (AUTO) 0.57 x10^3/uL (0.2-0.8); MONOCYTES % (AUTO) 8 % (2-9); NEUTROPHILS # (AUTO) 5.37 x10^3/uL (1.8-6.8); NEUTROPHILS % (AUTO) 77 % (42-75); PLATELET COUNT 307 x10^3/uL (130-400); RED BLOOD COUNT 2.58 x10^6/uL (4.38-5.82); RED CELL DISTRIBUTION WIDTH 13.5 % (9.4-14.8)
[2018-04-06 05:59] LABS: ALANINE AMINOTRANSFERASE 25 U/L (12-78); ALBUMIN 1.8 g/dL (3.4-5.0); ANION GAP 7 mmol/L (5-15); CALCIUM 8.1 mg/dL (8.5-10.1); CHLORIDE 105 mmol/L (98-107); CREATININE 1.91 mg/dL (0.7-1.3)
[2018-04-06 06:02] LABS: ALKALINE PHOSPHATASE 91 U/L (45-117); BILIRUBIN,TOTAL 0.6 mg/dL (0.2-1.0); TOTAL PROTEIN 6.1 g/dL (6.4-8.2)
[2018-04-06] MEDS ORDERED: POTASSIUM CHLORIDE 20 MEQ TAB.ER.PRT PO ONE (07:30)
[2018-04-06 07:42] VITALS: BP 138/66
[2018-04-06] MEDS: LACTOBACILLUS CHEW TABLET PO SCH ×3 (08:33→20:00)
[2018-04-06] MEDS: AMLODIPINE 5 MG TABLET PO SCH (08:33)
[2018-04-06] MEDS: IRON SUCROSE COMPLEX 100MG/5ML IV SCH (08:33)
[2018-04-06] MEDS: FINASTERIDE 5 MG TABLET PO SCH (08:33)
[2018-04-06] MEDS: INSULIN LISPRO 100 UNITS/ML, PEN SQ-INSULIN SCH ×4 (08:33→20:01)
[2018-04-06] MEDS: INSULIN GLARGINE 100 UNITS/ML, PEN SQ-INSULIN SCH ×2 (08:34→20:02)
[2018-04-06 13:49] VITALS: BP 124/65
[2018-04-06 19:44] VITALS: BP 123/62
[2018-04-07 01:15] VITALS: BP 133/63
[2018-04-07] MEDS: OMEPRAZOLE 20 MG CAPSULE.DR PO SCH ×2 (05:35→21:32)
[2018-04-07] MEDS: CARVEDILOL 12.5 MG TABLET PO SCH ×2 (05:35→16:43)
[2018-04-07 06:04] LABS: BASOPHILS # (AUTO) 0.05 x10^3/uL (0-0.1); BASOPHILS % (AUTO) 1 % (0-1); EOSINOPHILS # (AUTO) 0.02 x10^3/uL (0-0.4); EOSINOPHILS % (AUTO) 0 % (1-7); LYMPHOCYTES # (AUTO) 0.91 x10^3/uL (1-3.4); LYMPHOCYTES % (AUTO) 14 % (22-44); MD NO; MEAN CORPUSCULAR HEMOGLOBIN 32.2 pg (27.5-34.5); MEAN CORPUSCULAR VOLUME 94.9 fL (81-97); MEAN PLATELET VOLUME 8.1 fL (7.4-10.4); MONOCYTES # (AUTO) 0.56 x10^3/uL (0.2-0.8); MONOCYTES % (AUTO) 9 % (2-9); NEUTROPHILS # (AUTO) 4.95 x10^3/uL (1.8-6.8); NEUTROPHILS % (AUTO) 76 % (42-75); PLATELET COUNT 318 x10^3/uL (130-400); RED BLOOD COUNT 2.73 x10^6/uL (4.38-5.82); RED CELL DISTRIBUTION WIDTH 13.6 % (9.4-14.8)
[2018-04-07 06:15] LABS: ANION GAP 6 mmol/L (5-15); CALCIUM 8.3 mg/dL (8.5-10.1); CHLORIDE 107 mmol/L (98-107)
[2018-04-07 06:20] LABS: ALANINE AMINOTRANSFERASE 23 U/L (12-78); ALKALINE PHOSPHATASE 92 U/L (45-117); BILIRUBIN,TOTAL 0.5 mg/dL (0.2-1.0); CREATININE 1.76 mg/dL (0.7-1.3); TOTAL PROTEIN 6.7 g/dL (6.4-8.2)
[2018-04-07] MEDS ORDERED: TAMSULOSIN 0.4 MG CAP.ER.24H PO ONE (06:30)
[2018-04-07] MEDS: INSULIN LISPRO 100 UNITS/ML, PEN SQ-INSULIN SCH ×4 (07:00→21:32)
[2018-04-07 07:22] VITALS: BP 144/74
[2018-04-07] MEDS: INSULIN GLARGINE 100 UNITS/ML, PEN SQ-INSULIN SCH ×2 (09:00→21:33)
[2018-04-07] MEDS: IRON SUCROSE COMPLEX 100MG/5ML IV SCH (10:06)
[2018-04-07] MEDS: FINASTERIDE 5 MG TABLET PO SCH (10:06)
[2018-04-07] MEDS: AMLODIPINE 5 MG TABLET PO SCH (10:06)
[2018-04-07] MEDS: LACTOBACILLUS CHEW TABLET PO SCH ×3 (10:06→21:32)
[2018-04-07 10:21] LABS: CULTURE INDICATED? YES; MICROSCOPIC INDICATED
[2018-04-07 11:40] LABS: BASOPHILS # (AUTO) 0.03 x10^3/uL (0-0.1); BASOPHILS % (AUTO) 0 % (0-1); EOSINOPHILS # (AUTO) 0.01 x10^3/uL (0-0.4); EOSINOPHILS % (AUTO) 0 % (1-7); LYMPHOCYTES # (AUTO) 0.65 x10^3/uL (1-3.4); LYMPHOCYTES % (AUTO) 9 % (22-44); MD NO; MEAN CORPUSCULAR HEMOGLOBIN 31.8 pg (27.5-34.5); MEAN CORPUSCULAR HGB CONC 33.5 g/dL (33.2-36.2); MEAN CORPUSCULAR VOLUME 95.1 fL (81-97); MEAN PLATELET VOLUME 8.1 fL (7.4-10.4); MONOCYTES # (AUTO) 0.49 x10^3/uL (0.2-0.8); MONOCYTES % (AUTO) 7 % (2-9); NEUTROPHILS # (AUTO) 6.14 x10^3/uL (1.8-6.8); NEUTROPHILS % (AUTO) 84 % (42-75); PLATELET COUNT 287 x10^3/uL (130-400)
[2018-04-07 13:19] VITALS: BP 145/81
[2018-04-07] MEDS: SODIUM CHLORIDE 0.9% 1,000 ML IV SCH (14:39)
[2018-04-07 19:53] VITALS: BP 129/78
[2018-04-08 01:09] VITALS: BP 133/70
[2018-04-08] MEDS: SODIUM CHLORIDE 0.9% 1,000 ML IV SCH (05:07)
[2018-04-08] MEDS: CARVEDILOL 12.5 MG TABLET PO SCH ×2 (05:07→18:02)
[2018-04-08 05:59] LABS: MEAN CORPUSCULAR HEMOGLOBIN 31.3 pg (27.5-34.5); MEAN CORPUSCULAR VOLUME 94.9 fL (81-97); MEAN PLATELET VOLUME 8.5 fL (7.4-10.4); PLATELET COUNT 232 x10^3/uL (130-400); RED BLOOD COUNT 2.37 x10^6/uL (4.38-5.82); RED CELL DISTRIBUTION WIDTH 13.7 % (9.4-14.8)
[2018-04-08 06:05] LABS: ALBUMIN 1.7 g/dL (3.4-5.0); ANION GAP 6 mmol/L (5-15); CALCIUM 7.6 mg/dL (8.5-10.1); CHLORIDE 111 mmol/L (98-107)
[2018-04-08 06:08] LABS: ALANINE AMINOTRANSFERASE 18 U/L (12-78); ALKALINE PHOSPHATASE 80 U/L (45-117); BILIRUBIN,TOTAL 0.3 mg/dL (0.2-1.0); CREATININE 1.41 mg/dL (0.7-1.3); TOTAL PROTEIN 5.6 g/dL (6.4-8.2)
[2018-04-08 06:13] LABS: BASOPHILS # (AUTO) 0.05 x10^3/uL (0-0.1); BASOPHILS % (AUTO) 1 % (0-1); EOSINOPHILS # (AUTO) 0.03 x10^3/uL (0-0.4); EOSINOPHILS % (AUTO) 1 % (1-7); LYMPHOCYTES # (AUTO) 0.71 x10^3/uL (1-3.4); LYMPHOCYTES % (AUTO) 14 % (22-44); MD SCAN; MONOCYTES # (AUTO) 0.55 x10^3/uL (0.2-0.8); MONOCYTES % (AUTO) 11 % (2-9); NEUTROPHILS # (AUTO) 3.72 x10^3/uL (1.8-6.8); NEUTROPHILS % (AUTO) 73 % (42-75)
[2018-04-08] MEDS: OMEPRAZOLE 20 MG CAPSULE.DR PO SCH ×2 (06:18→20:13)
[2018-04-08] MEDS ORDERED: MAGNESIUM SULFATE PMX 2GM/50ML 50 ML IV ONE (07:00)
[2018-04-08] MEDS: INSULIN LISPRO 100 UNITS/ML, PEN SQ-INSULIN SCH ×4 (07:00→20:14)
[2018-04-08 07:16] VITALS: BP 126/70
[2018-04-08] MEDS: INSULIN GLARGINE 100 UNITS/ML, PEN SQ-INSULIN SCH ×2 (09:12→20:14)
[2018-04-08] MEDS: LACTOBACILLUS CHEW TABLET PO SCH ×3 (09:12→20:12)
[2018-04-08] MEDS: FINASTERIDE 5 MG TABLET PO SCH (09:12)
[2018-04-08] MEDS: AMLODIPINE 5 MG TABLET PO SCH (09:12)
[2018-04-08] MEDS: POTASSIUM CHLORIDE 10 MEQ in SODIUM CHLORIDE 0.45% 1,000 ML IV SCH (11:31)
[2018-04-08 13:10] VITALS: BP 124/72
[2018-04-08 19:50] VITALS: BP 124/72
[2018-04-09] MEDS: POTASSIUM CHLORIDE 10 MEQ in SODIUM CHLORIDE 0.45% 1,000 ML IV SCH ×3 (01:20→20:30)
[2018-04-09 02:10] VITALS: BP 128/64
[2018-04-09] MEDS: OMEPRAZOLE 20 MG CAPSULE.DR PO SCH ×2 (05:08→21:16)
[2018-04-09] MEDS: CARVEDILOL 12.5 MG TABLET PO SCH ×2 (05:09→17:21)
[2018-04-09 07:38] LABS: MEAN CORPUSCULAR HEMOGLOBIN 31.7 pg (27.5-34.5); MEAN CORPUSCULAR HGB CONC 33.4 g/dL (33.2-36.2); MEAN PLATELET VOLUME 8.6 fL (7.4-10.4); PLATELET COUNT 220 x10^3/uL (130-400); RED BLOOD COUNT 2.41 x10^6/uL (4.38-5.82); RED CELL DISTRIBUTION WIDTH 13.7 % (9.4-14.8)
[2018-04-09 07:41] LABS: ALANINE AMINOTRANSFERASE 14 U/L (12-78); ALBUMIN 1.7 g/dL (3.4-5.0); ANION GAP 7 mmol/L (5-15); CALCIUM 7.9 mg/dL (8.5-10.1); CHLORIDE 106 mmol/L (98-107); CREATININE 1.32 mg/dL (0.7-1.3)
[2018-04-09 07:43] LABS: ALKALINE PHOSPHATASE 77 U/L (45-117); BILIRUBIN,TOTAL 0.4 mg/dL (0.2-1.0); TOTAL PROTEIN 5.7 g/dL (6.4-8.2)
[2018-04-09 08:05] LABS: BASOPHILS # (AUTO) 0.05 x10^3/uL (0-0.1); BASOPHILS % (AUTO) 1 % (0-1); EOSINOPHILS # (AUTO) 0.03 x10^3/uL (0-0.4); EOSINOPHILS % (AUTO) 1 % (1-7); LYMPHOCYTES # (AUTO) 0.87 x10^3/uL (1-3.4); LYMPHOCYTES % (AUTO) 15 % (22-44); MD SCAN; MONOCYTES # (AUTO) 0.66 x10^3/uL (0.2-0.8); MONOCYTES % (AUTO) 12 % (2-9); NEUTROPHILS # (AUTO) 4.04 x10^3/uL (1.8-6.8); NEUTROPHILS % (AUTO) 72 % (42-75)
[2018-04-09] MEDS: FINASTERIDE 5 MG TABLET PO SCH (08:17)
[2018-04-09] MEDS: LACTOBACILLUS CHEW TABLET PO SCH ×3 (08:17→21:16)
[2018-04-09] MEDS: AMLODIPINE 5 MG TABLET PO SCH (08:17)
[2018-04-09] MEDS: INSULIN LISPRO 100 UNITS/ML, PEN SQ-INSULIN SCH ×4 (08:18→21:15)
[2018-04-09] MEDS: INSULIN GLARGINE 100 UNITS/ML, PEN SQ-INSULIN SCH ×2 (08:19→21:16)
[2018-04-09 08:26] VITALS: BP 136/66
[2018-04-09 15:28] VITALS: BP 124/64
[2018-04-09 17:19] VITALS: BP 162/74
[2018-04-09 18:45] VITALS: BP 127/67
[2018-04-10 01:28] VITALS: BP 126/65
[2018-04-10 06:06] LABS: BASOPHILS # (AUTO) 0.03 x10^3/uL (0-0.1); BASOPHILS % (AUTO) 1 % (0-1); EOSINOPHILS # (AUTO) 0.04 x10^3/uL (0-0.4); EOSINOPHILS % (AUTO) 1 % (1-7); LYMPHOCYTES # (AUTO) 0.84 x10^3/uL (1-3.4); LYMPHOCYTES % (AUTO) 17 % (22-44); MD NO; MEAN CORPUSCULAR HEMOGLOBIN 32.8 pg (27.5-34.5); MEAN CORPUSCULAR HGB CONC 34.5 g/dL (33.2-36.2); MEAN CORPUSCULAR VOLUME 94.9 fL (81-97); MEAN PLATELET VOLUME 8.9 fL (7.4-10.4); MONOCYTES % (AUTO) 12 % (2-9); NEUTROPHILS # (AUTO) 3.55 x10^3/uL (1.8-6.8); NEUTROPHILS % (AUTO) 70 % (42-75); PLATELET COUNT 202 x10^3/uL (130-400); RED BLOOD COUNT 2.46 x10^6/uL (4.38-5.82); RED CELL DISTRIBUTION WIDTH 14.2 % (9.4-14.8)
[2018-04-10] MEDS: OMEPRAZOLE 20 MG CAPSULE.DR PO SCH ×2 (06:07→21:44)
[2018-04-10] MEDS: ACETAMINOPHEN 325 MG TABLET PO PRN ×3 (06:07→21:44)
[2018-04-10] MEDS: CARVEDILOL 12.5 MG TABLET PO SCH ×2 (06:07→17:10)
[2018-04-10 06:14] LABS: CALCIUM 7.3 mg/dL (8.5-10.1); CHLORIDE 106 mmol/L (98-107)
[2018-04-10 06:16] LABS: ANION GAP 7 mmol/L (5-15); CREATININE 1.27 mg/dL (0.7-1.3)
[2018-04-10 06:57] VITALS: BP 139/75
[2018-04-10] MEDS: INSULIN GLARGINE 100 UNITS/ML, PEN SQ-INSULIN SCH ×2 (08:09→21:46)
[2018-04-10] MEDS: INSULIN LISPRO 100 UNITS/ML, PEN SQ-INSULIN SCH ×4 (08:09→21:46)
[2018-04-10] MEDS: AMLODIPINE 5 MG TABLET PO SCH (09:06)
[2018-04-10] MEDS: FINASTERIDE 5 MG TABLET PO SCH (09:06)
[2018-04-10] MEDS: LACTOBACILLUS CHEW TABLET PO SCH ×3 (09:06→21:45)
[2018-04-10] MEDS: POTASSIUM CHLORIDE 10 MEQ in SODIUM CHLORIDE 0.45% 1,000 ML IV SCH (12:38)
[2018-04-10 13:15] VITALS: BP 132/72
[2018-04-10 17:00] VITALS: BP 133/69
[2018-04-10 20:41] VITALS: BP 129/70
[2018-04-11 01:30] VITALS: BP 130/83
[2018-04-11 05:05] LABS: LYMPHOCYTES % (AUTO) 17 % (22-44); MEAN CORPUSCULAR HEMOGLOBIN 31.9 pg (27.5-34.5); MEAN CORPUSCULAR HGB CONC 33.6 g/dL (33.2-36.2); MEAN CORPUSCULAR VOLUME 94.8 fL (81-97); MEAN PLATELET VOLUME 8.7 fL (7.4-10.4); MONOCYTES % (AUTO) 12 % (2-9); NEUTROPHILS % (AUTO) 70 % (42-75); PLATELET COUNT 230 x10^3/uL (130-400); RED BLOOD COUNT 2.44 x10^6/uL (4.38-5.82); RED CELL DISTRIBUTION WIDTH 13.9 % (9.4-14.8)
[2018-04-11 05:06] LABS: BASOPHILS # (AUTO) 0.05 x10^3/uL (0-0.1); BASOPHILS % (AUTO) 1 % (0-1); EOSINOPHILS # (AUTO) 0.05 x10^3/uL (0-0.4); EOSINOPHILS % (AUTO) 1 % (1-7); LYMPHOCYTES # (AUTO) 0.85 x10^3/uL (1-3.4); MD NO; MONOCYTES # (AUTO) 0.58 x10^3/uL (0.2-0.8); NEUTROPHILS # (AUTO) 3.54 x10^3/uL (1.8-6.8)
[2018-04-11 05:11] LABS: ANION GAP 5 mmol/L (5-15); CALCIUM 7.9 mg/dL (8.5-10.1); CHLORIDE 109 mmol/L (98-107); CREATININE 1.08 mg/dL (0.7-1.3)
[2018-04-11 06:13] VITALS: BP 158/76
[2018-04-11] MEDS: CARVEDILOL 12.5 MG TABLET PO SCH ×2 (06:15→16:55)
[2018-04-11] MEDS: OMEPRAZOLE 20 MG CAPSULE.DR PO SCH ×2 (06:15→19:35)
[2018-04-11] MEDS: INSULIN LISPRO 100 UNITS/ML, PEN SQ-INSULIN SCH ×4 (07:00→23:12)
[2018-04-11 08:23] VITALS: BP 133/75
[2018-04-11] MEDS: LACTOBACILLUS CHEW TABLET PO SCH ×3 (08:28→19:35)
[2018-04-11] MEDS: INSULIN GLARGINE 100 UNITS/ML, PEN SQ-INSULIN SCH ×3 (08:28→23:13)
[2018-04-11] MEDS: AMLODIPINE 5 MG TABLET PO SCH (08:28)
[2018-04-11] MEDS: FINASTERIDE 5 MG TABLET PO SCH (08:28)
[2018-04-11] MEDS: ERGOCALCIFEROL 8,000UNIT/ML PO SCH (08:28)
[2018-04-11] MEDS: POTASSIUM CHLORIDE 10 MEQ in SODIUM CHLORIDE 0.45% 1,000 ML IV SCH (11:10)
[2018-04-11 12:50] VITALS: BP 127/72
[2018-04-11] MEDS: ACETAMINOPHEN 325 MG TABLET PO PRN (19:35)
[2018-04-11 19:45] VITALS: BP 130/70
[2018-04-12 02:40] VITALS: BP 138/69
[2018-04-12] MEDS: POTASSIUM CHLORIDE 10 MEQ in SODIUM CHLORIDE 0.45% 1,000 ML IV SCH ×2 (04:12→17:31)
[2018-04-12 05:33] LABS: BASOPHILS # (AUTO) 0.07 x10^3/uL (0-0.1); BASOPHILS % (AUTO) 1 % (0-1); EOSINOPHILS # (AUTO) 0.06 x10^3/uL (0-0.4); EOSINOPHILS % (AUTO) 1 % (1-7); LYMPHOCYTES # (AUTO) 0.86 x10^3/uL (1-3.4); LYMPHOCYTES % (AUTO) 18 % (22-44); MD NO; MEAN CORPUSCULAR HEMOGLOBIN 32.4 pg (27.5-34.5); MEAN CORPUSCULAR HGB CONC 34.2 g/dL (33.2-36.2); MEAN CORPUSCULAR VOLUME 94.7 fL (81-97); MEAN PLATELET VOLUME 8.7 fL (7.4-10.4); MONOCYTES # (AUTO) 0.65 x10^3/uL (0.2-0.8); MONOCYTES % (AUTO) 13 % (2-9); NEUTROPHILS # (AUTO) 3.27 x10^3/uL (1.8-6.8); NEUTROPHILS % (AUTO) 67 % (42-75); PLATELET COUNT 252 x10^3/uL (130-400); RED BLOOD COUNT 2.43 x10^6/uL (4.38-5.82); RED CELL DISTRIBUTION WIDTH 14.4 % (9.4-14.8)
[2018-04-12 05:39] LABS: ANION GAP 5 mmol/L (5-15); CHLORIDE 110 mmol/L (98-107); CREATININE 1.03 mg/dL (0.7-1.3)
[2018-04-12] MEDS: CARVEDILOL 12.5 MG TABLET PO SCH ×2 (06:37→17:30)
[2018-04-12] MEDS: OMEPRAZOLE 20 MG CAPSULE.DR PO SCH ×2 (06:38→21:00)
[2018-04-12] MEDS: INSULIN LISPRO 100 UNITS/ML, PEN SQ-INSULIN SCH ×4 (07:00→21:14)
[2018-04-12 07:01] VITALS: BP 146/76
[2018-04-12] MEDS: AMLODIPINE 5 MG TABLET PO SCH (08:37)
[2018-04-12] MEDS: FINASTERIDE 5 MG TABLET PO SCH (08:37)
[2018-04-12] MEDS: LACTOBACILLUS CHEW TABLET PO SCH ×3 (08:37→21:00)
[2018-04-12] MEDS: INSULIN GLARGINE 100 UNITS/ML, PEN SQ-INSULIN SCH ×2 (08:38→21:14)
[2018-04-12 15:23] VITALS: BP 118/71
[2018-04-12 19:11] VITALS: BP 127/68
[2018-04-13 02:01] VITALS: BP 137/67
[2018-04-13] MEDS: OMEPRAZOLE 20 MG CAPSULE.DR PO SCH ×2 (05:41→21:09)
[2018-04-13] MEDS: CARVEDILOL 12.5 MG TABLET PO SCH ×2 (05:41→17:09)
[2018-04-13 06:06] LABS: BASOPHILS # (AUTO) 0.05 x10^3/uL (0-0.1); BASOPHILS % (AUTO) 1 % (0-1); EOSINOPHILS # (AUTO) 0.09 x10^3/uL (0-0.4); EOSINOPHILS % (AUTO) 2 % (1-7); LYMPHOCYTES % (AUTO) 19 % (22-44); MD NO; MEAN CORPUSCULAR HGB CONC 33.6 g/dL (33.2-36.2); MEAN CORPUSCULAR VOLUME 95.3 fL (81-97); MEAN PLATELET VOLUME 8.8 fL (7.4-10.4); MONOCYTES # (AUTO) 0.69 x10^3/uL (0.2-0.8); MONOCYTES % (AUTO) 13 % (2-9); NEUTROPHILS # (AUTO) 3.36 x10^3/uL (1.8-6.8); NEUTROPHILS % (AUTO) 65 % (42-75); PLATELET COUNT 275 x10^3/uL (130-400); RED BLOOD COUNT 2.58 x10^6/uL (4.38-5.82); RED CELL DISTRIBUTION WIDTH 14.1 % (9.4-14.8)
[2018-04-13 06:19] LABS: ANION GAP 3 mmol/L (5-15); CALCIUM 7.9 mg/dL (8.5-10.1); CHLORIDE 109 mmol/L (98-107)
[2018-04-13 06:21] LABS: CREATININE 1.05 mg/dL (0.7-1.3)
[2018-04-13] MEDS: INSULIN LISPRO 100 UNITS/ML, PEN SQ-INSULIN SCH ×4 (07:00→21:10)
[2018-04-13 07:09] VITALS: BP 131/72
[2018-04-13] MEDS: INSULIN GLARGINE 100 UNITS/ML, PEN SQ-INSULIN SCH ×2 (07:31→21:10)
[2018-04-13] MEDS: POTASSIUM CHLORIDE 10 MEQ in SODIUM CHLORIDE 0.45% 1,000 ML IV SCH ×2 (07:31→22:04)
[2018-04-13] MEDS: LACTOBACILLUS CHEW TABLET PO SCH ×3 (07:31→21:09)
[2018-04-13] MEDS: AMLODIPINE 5 MG TABLET PO SCH (07:31)
[2018-04-13] MEDS: FINASTERIDE 5 MG TABLET PO SCH (07:31)
[2018-04-13 13:09] VITALS: BP 129/71
[2018-04-13 19:51] VITALS: BP 122/69
[2018-04-14 01:45] VITALS: BP 146/75
[2018-04-14 05:37] VITALS: BP 152/74
[2018-04-14] MEDS: CARVEDILOL 12.5 MG TABLET PO SCH ×2 (05:39→17:29)
[2018-04-14] MEDS: OMEPRAZOLE 20 MG CAPSULE.DR PO SCH ×2 (05:39→21:20)
[2018-04-14 05:46] LABS: BASOPHILS # (AUTO) 0.06 x10^3/uL (0-0.1); BASOPHILS % (AUTO) 1 % (0-1); EOSINOPHILS % (AUTO) 2 % (1-7); LYMPHOCYTES # (AUTO) 1.05 x10^3/uL (1-3.4); LYMPHOCYTES % (AUTO) 20 % (22-44); MD NO; MEAN CORPUSCULAR HEMOGLOBIN 32.7 pg (27.5-34.5); MEAN CORPUSCULAR HGB CONC 34.7 g/dL (33.2-36.2); MEAN CORPUSCULAR VOLUME 94.4 fL (81-97); MEAN PLATELET VOLUME 8.8 fL (7.4-10.4); MONOCYTES # (AUTO) 0.65 x10^3/uL (0.2-0.8); MONOCYTES % (AUTO) 12 % (2-9); NEUTROPHILS # (AUTO) 3.45 x10^3/uL (1.8-6.8); NEUTROPHILS % (AUTO) 65 % (42-75); PLATELET COUNT 278 x10^3/uL (130-400)
[2018-04-14 05:56] LABS: ANION GAP 4 mmol/L (5-15); CHLORIDE 107 mmol/L (98-107); CREATININE 0.93 mg/dL (0.7-1.3)
[2018-04-14] MEDS ORDERED: POTASSIUM CHLORIDE 20 MEQ TAB.ER.PRT PO ONE (06:30)
[2018-04-14] MEDS: INSULIN LISPRO 100 UNITS/ML, PEN SQ-INSULIN SCH ×4 (07:00→21:20)
[2018-04-14 07:23] VITALS: BP 131/76
[2018-04-14] MEDS: AMLODIPINE 5 MG TABLET PO SCH (08:25)
[2018-04-14] MEDS: INSULIN GLARGINE 100 UNITS/ML, PEN SQ-INSULIN SCH ×4 (08:25→21:21)
[2018-04-14] MEDS: MAGNESIUM OXIDE 400 MG TABLET PO SCH (08:26)
[2018-04-14] MEDS: LACTOBACILLUS CHEW TABLET PO SCH ×3 (08:26→21:20)
[2018-04-14] MEDS: FINASTERIDE 5 MG TABLET PO SCH (08:26)
[2018-04-14] MEDS: POTASSIUM CHLORIDE 10 MEQ in SODIUM CHLORIDE 0.45% 1,000 ML IV SCH (12:00)
[2018-04-14 12:48] VITALS: BP 137/70
[2018-04-14 17:21] VITALS: BP 143/75
[2018-04-14 19:01] VITALS: BP 145/74
[2018-04-15 02:35] VITALS: BP 141/87
[2018-04-15] MEDS: POTASSIUM CHLORIDE 10 MEQ in SODIUM CHLORIDE 0.45% 1,000 ML IV SCH ×2 (03:18→17:07)
[2018-04-15 05:10] LABS: BASOPHILS % (AUTO) 2 % (0-1); EOSINOPHILS # (AUTO) 0.11 x10^3/uL (0-0.4); EOSINOPHILS % (AUTO) 2 % (1-7); LYMPHOCYTES # (AUTO) 0.88 x10^3/uL (1-3.4); LYMPHOCYTES % (AUTO) 18 % (22-44); MD NO; MEAN CORPUSCULAR HEMOGLOBIN 32.2 pg (27.5-34.5); MEAN CORPUSCULAR VOLUME 94.6 fL (81-97); MEAN PLATELET VOLUME 8.7 fL (7.4-10.4); MONOCYTES # (AUTO) 0.63 x10^3/uL (0.2-0.8); MONOCYTES % (AUTO) 13 % (2-9); NEUTROPHILS # (AUTO) 3.31 x10^3/uL (1.8-6.8); NEUTROPHILS % (AUTO) 66 % (42-75); PLATELET COUNT 280 x10^3/uL (130-400); RED BLOOD COUNT 2.56 x10^6/uL (4.38-5.82); RED CELL DISTRIBUTION WIDTH 13.9 % (9.4-14.8)
[2018-04-15 05:19] LABS: ANION GAP 6 mmol/L (5-15); CALCIUM 7.5 mg/dL (8.5-10.1); CHLORIDE 107 mmol/L (98-107); CREATININE 0.92 mg/dL (0.7-1.3)
[2018-04-15] MEDS: CARVEDILOL 12.5 MG TABLET PO SCH ×2 (05:20→17:08)
[2018-04-15] MEDS: OMEPRAZOLE 20 MG CAPSULE.DR PO SCH ×2 (05:20→21:53)
[2018-04-15] MEDS: INSULIN LISPRO 100 UNITS/ML, PEN SQ-INSULIN SCH ×4 (07:00→21:55)
[2018-04-15 07:11] VITALS: BP 144/74
[2018-04-15] MEDS: AMLODIPINE 5 MG TABLET PO SCH (09:33)
[2018-04-15] MEDS: FINASTERIDE 5 MG TABLET PO SCH (09:34)
[2018-04-15] MEDS: MAGNESIUM OXIDE 400 MG TABLET PO SCH (09:34)
[2018-04-15] MEDS: INSULIN GLARGINE 100 UNITS/ML, PEN SQ-INSULIN SCH ×2 (09:34→21:56)
[2018-04-15] MEDS: LACTOBACILLUS CHEW TABLET PO SCH ×3 (09:34→21:54)
[2018-04-15 13:42] VITALS: BP 140/71
[2018-04-15 19:13] VITALS: BP 154/77
[2018-04-16 00:20] VITALS: BP 151/76
[2018-04-16 05:50] LABS: BASOPHILS # (AUTO) 0.08 x10^3/uL (0-0.1); BASOPHILS % (AUTO) 1 % (0-1); EOSINOPHILS # (AUTO) 0.14 x10^3/uL (0-0.4); EOSINOPHILS % (AUTO) 3 % (1-7); LYMPHOCYTES # (AUTO) 0.84 x10^3/uL (1-3.4); LYMPHOCYTES % (AUTO) 15 % (22-44); MD NO; MEAN CORPUSCULAR HEMOGLOBIN 31.7 pg (27.5-34.5); MEAN CORPUSCULAR HGB CONC 33.7 g/dL (33.2-36.2); MEAN PLATELET VOLUME 8.5 fL (7.4-10.4); MONOCYTES # (AUTO) 0.72 x10^3/uL (0.2-0.8); MONOCYTES % (AUTO) 13 % (2-9); NEUTROPHILS # (AUTO) 3.89 x10^3/uL (1.8-6.8); NEUTROPHILS % (AUTO) 69 % (42-75); PLATELET COUNT 315 x10^3/uL (130-400); RED BLOOD COUNT 2.73 x10^6/uL (4.38-5.82); RED CELL DISTRIBUTION WIDTH 13.6 % (9.4-14.8)
[2018-04-16 05:56] VITALS: BP 137/72
[2018-04-16] MEDS: OMEPRAZOLE 20 MG CAPSULE.DR PO SCH (05:58)
[2018-04-16 05:59] LABS: ANION GAP 5 mmol/L (5-15); CALCIUM 8.2 mg/dL (8.5-10.1); CHLORIDE 107 mmol/L (98-107); CREATININE 0.95 mg/dL (0.7-1.3)
[2018-04-16] MEDS: CARVEDILOL 12.5 MG TABLET PO SCH (05:59)
[2018-04-16 06:38] VITALS: BP 132/69
[2018-04-16] MEDS: POTASSIUM CHLORIDE 10 MEQ in SODIUM CHLORIDE 0.45% 1,000 ML IV SCH (07:00)
[2018-04-16] MEDS: INSULIN LISPRO 100 UNITS/ML, PEN SQ-INSULIN SCH ×2 (07:00→11:00)
[2018-04-16] MEDS: MAGNESIUM OXIDE 400 MG TABLET PO SCH (09:37)
[2018-04-16] MEDS: LACTOBACILLUS CHEW TABLET PO SCH (09:37)
[2018-04-16] MEDS: FINASTERIDE 5 MG TABLET PO SCH (09:37)
[2018-04-16] MEDS: AMLODIPINE 5 MG TABLET PO SCH (09:38)
[2018-04-16] MEDS: INSULIN GLARGINE 100 UNITS/ML, PEN SQ-INSULIN SCH (09:38)
[2018-04-16] MEDS ORDERED: CHOL20002 PO (11:31)
[2018-04-16] MEDS ORDERED: MAGN400T50 PO (11:31)
[2018-04-16] MEDS ORDERED: ACID1TAB7 PO (11:31)
[2018-04-16] MEDS ORDERED: INSU100I13 SQ-INSULIN (11:31)
[2018-04-16] MEDS ORDERED: CARV12.543 PO (11:31)
[2018-04-16] MEDS ORDERED: POTA20TA14 PO (11:31)
[2018-04-16] MEDS ORDERED: POLY17PO5 PO (11:31)
[2018-04-16] MEDS ORDERED: OMEP-110 PO (11:52)
== END 2018-04-16 12:16 | DRG 870 ==
LOC: ED 08:51 → EDIP 09:41 → CCU 11:45 → 4WST 04-01 14:31
PROVIDERS: ADMIT Internal Medicine; ATTEND Internal Medicine
PROC: 0BH17EZ Insertion of Endotracheal Airway into Trachea, Via Natural or Artificial Opening (ICD-10-PCS; principal; 2018-03-23)
PROC: 5A1955Z Respiratory Ventilation, Greater than 96 Consecutive Hours (ICD-10-PCS; 2018-03-23)
PROC: 02HV33Z Insertion of Infusion Device into Superior Vena Cava, Percutaneous Approach (ICD-10-PCS; 2018-03-25)
PROC: 30233N1 Transfusion of Nonautologous Red Blood Cells into Peripheral Vein, Percutaneous Approach (ICD-10-PCS; 2018-03-31)
PROC: 0DJ08ZZ Inspection of Upper Intestinal Tract, Via Natural or Artificial Opening Endoscopic (ICD-10-PCS; 2018-04-04)
DX: A41.50 Gram-negative sepsis, unspecified (principal); N17.0 Acute kidney failure with tubular necrosis; E11.10 Type 2 diabetes mellitus with ketoacidosis without coma; E43 Unspecified severe protein-calorie malnutrition; K85.90 Acute pancreatitis without necrosis or infection, unspecified; G93.41 Metabolic encephalopathy; J96.01 Acute respiratory failure with hypoxia; K25.4 Chronic or unspecified gastric ulcer with hemorrhage; R65.21 Severe sepsis with septic shock; N39.0 Urinary tract infection, site not specified; E87.0 Hyperosmolality and hypernatremia; E87.1 Hypo-osmolality and hyponatremia; I42.9 Cardiomyopathy, unspecified; J98.11 Atelectasis; Z99.11 Dependence on respirator [ventilator] status; B96.1 Klebsiella pneumoniae [K. pneumoniae] as the cause of diseases classified elsewhere; D64.9 Anemia, unspecified; E11.649 Type 2 diabetes mellitus with hypoglycemia without coma; E55.9 Vitamin D deficiency, unspecified; E86.0 Dehydration; E86.1 Hypovolemia; I10 Essential (primary) hypertension; E87.70 Fluid overload, unspecified; I49.3 Ventricular premature depolarization; N40.0 Benign prostatic hyperplasia without lower urinary tract symptoms; R31.0 Gross hematuria; Z72.0 Tobacco use; Z68.26 Body mass index [BMI] 26.0-26.9, adult; Z79.4 Long term (current) use of insulin; Z79.899 Other long term (current) drug therapy; Z99.2 Dependence on renal dialysis; Z88.0 Allergy status to penicillin
CPT/HCPCS: 36415; 36556; 36600; 51701; 70450; 71045; 74176; 76705; 76770; 76937; 77001; 80048; 80053; 81001; 82010; 82040; 82140; 82271; 82306; 82533; 82607; 82803; 82962; 83036; 83540; 83550; 83605; 83690; 83735; 83930; 84100; 84145; 84443; 84478; 84484; 85014; 85018; 85025; 85027; 85610; 86704; 86706; 86803; 86850; 86900; 86923; 87040; 87070; 87077; 87081; 87086; 87186; 87205; 87340; 93005; 94002; 94003; 94150; 94640; 96361; 96374; 96375; 99291; C1894; C8929; G0378; J0696; J1644; J1756; J1815; J2020; J2185; J2250; J2704; J3010; J3411; J3480; J7042; J7620; C1751; C9113; J1642; J3475; J7030; J7040; J7050; J7120; P9016; P9612